=== PATIENT | female | born 1950 | race Caucasian/White ===

== ENCOUNTER → 2017-04-24 | Day surgery (SDC) | payer MEDICARE, BC ==
[~2017-04-24] MED LIST: ASPI1TAB57 PO; ASPI81TA82 PO; ATEN-100 PO; BUPIVACAINE HCL PF 0.5% 30 ML VIAL ONE; DIOV160T60 PO; GLIP10TA6 PO; GLIP5 PO; LORTA5 PO; METF-324 PO; METF1000 PO; METO25TA3 PO; OMEP20TA PO; OMEP20TA93 PO; PROPOFOL 200 MG/20 ML AMP IV ONE; TRIAMCINOLONE ACETONIDE 40 MG/ML VIAL I-ARTICULR ONE; TYLE500T PO; VALS1TAB65 PO; methylPREDNISolone ACETATE 40 MG/ML VIAL I-ARTICULR ONE
--- NOTE | 2017-04-25 21:41 | M6 ---
cc: Calvin YU DATE 04/24/2017 DATE OF 1950 PROCEDURE Fluoroscopically guided injection bilateral sacroiliac joints. History and physical was completed and signed. Consent was signed. Procedure site was marked. Medications were listed and reconciled. Pain score was recorded. Allergies were noted. Time out was taken. Fluoroscopy time was recorded where applicable. Sedation was administered or directed by Dr. Yu. The patient was given oxygen. The patient was monitored by a registered nurse. Total procedure time was greater than 15 minutes. IV was started, blood pressure cuff, pulse oximeter and EKG were applied. The patient was placed in the prone position on a Braulio table sedated with small amounts of propofol titrated to effect. Vital signs were monitored and remained stable throughout the procedure. The sacral area was prepped with alcohol and 10% Betadine solution and draped with sterile drapes. Fluoroscopy was used shooting from medial to lateral to clearly visualize the posterior joint line of the bilateral sacroiliac joints. Separate sterile 5-inch 22-gauge spinal needles were advanced into each joint under fluoroscopic guidance. There was negative aspiration for blood or any other type of fluid. At each location, the patient was given 2 mL of 0.5% Marcaine, 20 mg of Depo-Medrol, 20 mg of Kenalog. Following the procedure, the patient was taken to the recovery room with stable vital signs neurologically intact. MD HERNAN Knight/ /9:46 AM /9:31 PM
== END | disposition home or self-care (01) ==
LOC: PHSDC 07:43
PROVIDERS: ATTEND Pain Medicine Interventional Pain Medicine
DX: M54.5 Low back pain (principal); M54.16 Radiculopathy, lumbar region
CPT/HCPCS: 99152; G0260; J1030; J3301; 27096

== ENCOUNTER 2017-11-10 16:33 | Inpatient (IN) | payer MEDICARE, BC ==
[~2017-11-10] VITALS: Ht 162.6 cm; Wt 93.6 kg
[2017-11-10] VITALS (9 sets, daily range): BP systolic 134–174; BP diastolic 58–80; PULSE 122–130; RESP 16–26; TEMP 98.3–99.1; O2SAT 90–97
[~2017-11-10 16:33] MED LIST changes: -ASPI81TA82 PO; -ATEN-100 PO; -BUPIVACAINE HCL PF 0.5% 30 ML VIAL ONE; -DIOV160T60 PO; -GLIP5 PO; -LORTA5 PO; -METF-324 PO; -OMEP20TA PO; -PROPOFOL 200 MG/20 ML AMP IV ONE; -TRIAMCINOLONE ACETONIDE 40 MG/ML VIAL I-ARTICULR ONE; -TYLE500T PO; -methylPREDNISolone ACETATE 40 MG/ML VIAL I-ARTICULR ONE
--- NOTE | 2017-11-10 17:07 | PD ---
HPI Chief Complaint: Respiratory Symptoms Time Seen by Provider: 17:05 Travel History International Travel<30 days: No Contact w/Intl Traveler<30days: No Traveled to known affect area: No History of Present Illness HPI Patient states that she started having productive cough of yellowish-green sputum since Friday has approximately 3 days ago, she presented to her primary care who was on vacation and so she went to [facility] urgent care. Patient has also had fever, and cough was affiliated with his symptoms. She denies any rash, nausea, vomiting, diarrhea, abdominal pain, flank pain. 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 PFSH Past Medical History Hx Anticoagulant Therapy: No Arthritis: Yes Asthma: Yes Cancer: No Cardiovascular Problems: Yes (HTN) Diabetes: Yes Patient Takes Glucophage: Yes Endocrine: No Gastrointestinal Disorders: Yes (LARGE INTESTINE BLOCKAGE; FISTULA LG/SM INTESTINE; ADHERE TO LEFT OVARY ) Glaucoma: No Genitourinary: No Hepatitis: No Hiatal Hernia: No Hypertension: Yes Immune Disorder: No Medical other: No Musculoskeletal: Yes (ARTHRITIS) Neurologic: No Psychiatric: No Reproductive: Yes (FIBROID TUMOR RIGHT SIDE) Respiratory: Yes (ASTHMA) Thyroid Disease: No Tetanus Vaccination: < 5 Years Influenza Vaccination: Yes ?: Not Dilation and Curettage (D&C): Yes Past Surgical History Abdominal Surgery: Yes (BENIGN TUMOR REMOVED FROM STOMACH) AICD: No Body Medical Devices: NONE Cardiac Surgery: No Section: Yes Ear Surgery: No Endocrine Surgery: No Eye Surgery: No Genitourinary Surgery: No Gynecologic Surgery: Yes () Joint Replacement: No Oral Surgery: No Pacemaker: No Thoracic Surgery: No Social History Alcohol Use: Yes (RARELY) Tobacco Use: No Substance Use: No Allergies-Medications (Allergen,Severity, Reaction): Coded Allergies: No Known Allergies (Verified Allergy, Unknown, 11/10/17) Reported Meds & Prescriptions Reported Meds & Active Scripts Active Reported Metoprolol Tartrate 25 Mg Tab 25 Mg PO DAILY Valsartan 160 Mg Tab 160 Mg PO DAILY Omeprazole 20 Mg Tab 20 Mg PO DAILY Aspirin 81 (Aspirin) 81 Mg Tabdr 81 Mg PO DAILY Metformin (Metformin HCl) 1,000 Mg Tab 1,000 Mg PO BIDPC Glipizide 10 Mg Tab 10 Mg PO BIDAC Take 30 minutes before a meal Review of Systems General / Constitutional: No: Fever Eyes: No: Visual changes HENT: No: Headaches Cardiovascular: Positive: Tachycardia Respiratory: Positive: Cough, Shortness of Breath Gastrointestinal: No: Abdominal Pain Genitourinary: No: Dysuria Musculoskeletal: No: Pain Skin: No Rash Neurologic: No: Weakness Psychiatric: No: Depression Endocrine: No: Polydipsia Hematologic/Lymphatic: No: Easy Bruising Physical Exam Narrative GENERAL: SKIN: Warm and dry. HEAD: Atraumatic. Normocephalic. EYES: Pupils equal and round. No scleral icterus. No injection or drainage. ENT: No nasal bleeding or discharge. Mucous membranes pink and moist. NECK: Trachea midline. No JVD. CARDIOVASCULAR: Tachycardic rate, regular rhythm RESPIRATORY: No accessory muscle use. Right lower lobe crackles noted, minimal scattered wheezing throughout bilateral lungs, good tidal volume noted GASTROINTESTINAL: Abdomen soft, non-tender, nondistended. MUSCULOSKELETAL: Extremities without clubbing, cyanosis, or edema. No obvious deformities. NEUROLOGICAL: Awake and alert. No obvious cranial nerve deficits. Motor grossly within normal limits. Five out of 5 muscle strength in the arms and legs. Normal speech. PSYCHIATRIC: Appropriate mood and affect; insight and judgment normal. Data Data Last Documented VS Vital Signs Date Time Temp Pulse Resp B/P (MAP) Pulse Ox O2 Delivery O2 Flow Rate FiO2 11/10/17 16:54 95 Nasal Cannula 2.00 11/10/17 16:36 99.0 129 18 145/70 (95) Orders Orders Electrocardiogram (11/10/17 17:07) B-Type Natriuretic Peptide (11/10/17 17:07) Ckmb (Isoenzyme) Profile (11/10/17 17:07) Complete Blood Count With Diff (11/10/17 17:07) Comprehensive Metabolic Panel (11/10/17 17:07) Prothrombin Time / Inr (Pt) (11/10/17 17:07) Act Partial Throm Time (Ptt) (11/10/17 17:07) Troponin I (11/10/17 17:07) Lipase (11/10/17 17:07) Chest, Single Ap (11/10/17 17:07) Ecg Monitoring (11/10/17 17:07) Iv Access Insert/Monitor (11/10/17 17:07) Oximetry (11/10/17 17:07) Oxygen Administration (11/10/17 17:07) Sodium Chloride 0.9% Flush (Ns Flush) (11/10/17 17:15) Arterial Blood Gas (Abg) (11/10/17 17:13) Influenzae A/B Antigen (11/10/17 17:13) Blood Culture (11/10/17 17:13) Methylprednisolone So Succ Inj (Solumedr (11/10/17 17:15) Albuterol-Ipratropium Neb (Duoneb Neb) (11/10/17 17:15) Ceftriaxone Inj (Rocephin Inj) (11/10/17 17:15) Azithromycin Inj (Zithromax Inj) (11/10/17 17:15) Sepsis Workup Initiated (11/10/17 ) Lactic Acid Sepsis Protocol (11/10/17 17:13) Sputum Culture And Gram Stain (11/10/17 17:13) Pneumococcal Urinary Antigen (11/10/17 17:13) Legionella Urinary Antigen (11/10/17 17:13) Sodium Chlor 0.9% 1000 Ml Inj (Ns 1000 M (11/10/17 17:13) Sodium Chlor 0.9% 1000 Ml Inj (Ns 1000 M (11/10/17 17:13) CKMB (11/10/17 17:20) CKMB% (11/10/17 17:20) Labs Laboratory Tests Test 11/10/17 17:20 11/10/17 17:38 11/10/17 17:45 White Blood Count 8.0 TH/MM3 Red Blood Count 4.36 MIL/MM3 Hemoglobin 13.3 GM/DL Hematocrit 39.5 % Mean Corpuscular Volume 90.7 FL Mean Corpuscular Hemoglobin 30.5 PG Mean Corpuscular Hemoglobin Concent 33.6 % Red Cell Distribution Width 12.8 % Platelet Count 206 TH/MM3 Mean Platelet Volume 8.4 FL Neutrophils (%) (Auto) 77.0 % Lymphocytes (%) (Auto) 11.0 % Monocytes (%) (Auto) 7.7 % Eosinophils (%) (Auto) 0.9 % Basophils (%) (Auto) 3.4 % Neutrophils # (Auto) 6.1 TH/MM3 Lymphocytes # (Auto) 0.9 TH/MM3 Monocytes # (Auto) 0.6 TH/MM3 Eosinophils # (Auto) 0.1 TH/MM3 Basophils # (Auto) 0.3 TH/MM3 CBC Comment DIFF FINAL Differential Comment Prothrombin Time 11.3 SEC Prothromb Time International Ratio 1.1 RATIO Activated Partial Thromboplast Time 26.1 SEC Blood Urea Nitrogen 11 MG/DL Creatinine 1.30 MG/DL Random Glucose 197 MG/DL Total Protein 8.1 GM/DL Albumin 3.0 GM/DL Calcium Level 8.4 MG/DL Alkaline Phosphatase 56 U/L Aspartate Amino Transf (AST/SGOT) 26 U/L Alanine Aminotransferase (ALT/SGPT) 26 U/L Total Bilirubin 0.4 MG/DL Sodium Level 135 MEQ/L Potassium Level 3.0 MEQ/L Chloride Level 95 MEQ/L Carbon Dioxide Level 31.3 MEQ/L Anion Gap 9 MEQ/L Estimat Glomerular Filtration Rate 41 ML/MIN Total Creatine Kinase 106 U/L Troponin I LESS THAN 0.02 NG/ML B-Type Natriuretic Peptide 14 PG/ML Lipase 227 U/L Blood Gas Puncture Site RT RADIAL Blood Gas Patient Temperature 98.6 Blood Gas HCO3 31 mmol/L Blood Gas Base Excess 7.4 mmol/L Blood Gas Oxygen Saturation 88 % Arterial Blood pH 7.49 Arterial Blood Partial Pressure CO2 41 mmHG Arterial Blood Partial Pressure O2 57 mmHG Arterial Blood Oxygen Content 17.7 Vol % Arterial Blood Carboxyhemoglobin 1.3 % Arterial Blood Methemoglobin 1.1 % Blood Gas Hemoglobin 14.3 G/DL Oxygen Delivery Device ROOM AIR Blood Gas Inspired Oxygen 21 % [facility] Medical Decision Making Medical Screen Exam Complete: Yes Emergency Medical Condition: Yes Medical Record Reviewed: Yes Interpretation(s) EKG shows sinus tachycardia, 124 bpm, normal intervals, no evidence of any ST elevation OH, however there are some minimal lateral ST depressions noted. Patient is not oxygen dependent Pulse ox with excellent pleth wave shows a room air oximetry of 90%, which is consistent with hypoxemia Differential Diagnosis Sepsis due to pulmonary causes versus UTI versus pleural effusion Narrative Course Reviewed patient's outpatient EKG which showed a right lower lobe infiltrate noted on the AP and lateral, additionally reviewed her outpatient EKG which showed a sinus tachycardia at a rate of 124 which is very similar to the present EKG that she had performed here at the emergency department. Sepsis Criteria SIRS Criteria (2 or more): Heart rate over 90 Sepsis Criteria (SIRS+source): Infect source susp/known Admitting Information Admitting Physician Requests: Observation Constantino Mahmood MD Nov 10, 2017 17:07
[2017-11-10] MEDS ORDERED: SODIUM CHLOR 0.9% 1000 ML INJ 1,000 ML IV ONE (17:13)
[2017-11-10] MEDS ORDERED: SODIUM CHLOR 0.9% 1000 ML INJ 800 ML IV ONE (17:13)
[2017-11-10] MEDS ORDERED: methylPREDNISolone SOD SUCC 125 MG/2 ML VIAL IV PUSH ONE (17:15)
[2017-11-10] MEDS ORDERED: SODIUM CHLORIDE 0.9% FLUSH 10 ML FLUSH IVF PRN (17:15)
[2017-11-10] MEDS ORDERED: cefTRIAXone INJ 1,000 MG in SODIUM CHLORIDE 0.9% INJ 100 ML IV ONE (17:15)
[2017-11-10] MEDS ORDERED: AZITHROMYCIN INJ 500 MG in SODIUM CHLOR 0.9% 250 ML INJ 250 ML IV ONE (17:15)
[2017-11-10 17:30] LABS: AUTOMATED NEUTROPHIL # 6.1 TH/MM3 (1.8-7.7); BASOPHIL # 0.3 TH/MM3 (0-0.2); BASOPHIL % 3.4 % (0.0-2.0); EOSINOPHIL # 0.1 TH/MM3 (0-0.4); EOSINOPHIL % 0.9 % (0.0-4.0); HEMATOCRIT 39.5 % (35.0-46.0); HEMOGLOBIN 13.3 GM/DL (11.6-15.3); LYMPHOCYTE # 0.9 TH/MM3 (1.0-4.8); MEAN CELL VOLUME 90.7 FL (80.0-100.0); MEAN CORPUSCULAR HEMOGLOBIN 30.5 PG (27.0-34.0); MEAN CORPUSCULAR HGB CONC 33.6 % (32.0-36.0); MEAN PLATELET VOLUME 8.4 FL (7.0-11.0); MONO % 7.7 % (0.0-8.0); MONOCYTE # 0.6 TH/MM3 (0-0.9); PLATELET COUNT 206 TH/MM3 (150-450); RED BLOOD COUNT 4.36 MIL/MM3 (4.00-5.30); RED CELL DISTRIBUTION WIDTH 12.8 % (11.6-17.2)
[2017-11-10] MEDS: RESP: ALBUTEROL 2.5 MG/IPRATROPIUM 0.5 MG NEB (SCH) INH ×2 (17:31→17:32)
[2017-11-10 17:39] LABS: CHLORIDE 95 MEQ/L (98-107); SODIUM (NA) 135 MEQ/L (136-145)
[2017-11-10 17:42] LABS: BICARBONATE 31.3 MEQ/L (21.0-32.0); CALCIUM 8.4 MG/DL (8.5-10.1); INTERNATIONAL NORMALIZED RATIO 1.1 RATIO; PROTHROMBIN TIME - PATIENT 11.3 SEC (9.8-11.6)
[2017-11-10 17:43] LABS: BLOOD UREA NITROGEN 11 MG/DL (7-18); GLUCOSE,RANDOM 197 MG/DL (74-106)
[2017-11-10 17:45] LABS: ALT (GPT) 26 U/L (10-53); AST (GOT) 26 U/L (15-37)
--- NOTE | 2017-11-10 17:45 | RADRPT ---
EXAM DATE: 11/10/2017 5:35 PM EDT AGE/SEX: 67 years / Female INDICATIONS: Shortness of breath. CLINICAL DATA: This is the patient's initial encounter. Patient reports that signs and symptoms have been present for 1 day and indicates a pain score of 0/10. MEDICAL/SURGICAL HISTORY: Asthma. Hypertension. None. COMPARISON: No prior [facility] exams available for comparison. FINDINGS: Streaky perihilar and basilar interstitial opacities of undetermined chronicity. No evidence of alveo lar consolidation or significant effusion. Heart size and mediastinal contours are grossly satisfacto ry. CONCLUSION: Streaky parenchymal opacities of undetermined chronicity. Electronically signed by: Bonilla Bryson MD 11/10/2017 5:43 PM EDT
[2017-11-10 17:46] LABS: GLOMERULAR FILTRATION RATE 41 ML/MIN (>89)
[2017-11-10 17:47] LABS: TOTAL BILIRUBIN ADULT 0.4 MG/DL (0.2-1.0); TOTAL PROTEIN 8.1 GM/DL (6.4-8.2)
[2017-11-10 17:48] LABS: ALKALINE PHOSPHATASE 56 U/L (45-117)
[2017-11-10 17:50] LABS: TROPONIN I LESS THAN 0.02 NG/ML (0.02-0.05)
[2017-11-10 18:03] LABS: LACTIC ACID SEPSIS PROTOCOL 2.6 mmol/L (0.4-2.0)
[2017-11-10] MEDS ORDERED: OXYB5TAB8 PO (18:27)
[2017-11-10] MEDS ORDERED: NALOXONE HCL 0.4 MG/ML AMP IV PUSH PRN (19:45)
[2017-11-10] MEDS ORDERED: GLUCAGON 1 MG/ML VIAL OTHER PRN (19:45)
[2017-11-10] MEDS ORDERED: DEXTROSE 50% IN WATER 50 ML VIAL(D50) IV PUSH PRN (19:45)
[2017-11-10] MEDS ORDERED: BISACODYL 10 MG SUPP RECTAL PRN (20:00)
[2017-11-10] MEDS ORDERED: LACTULOSE SYRUP 20 GM/30 ML CUP PO PRN (20:00)
[2017-11-10] MEDS ORDERED: RESP: ALBUTEROL 2.5 MG/IPRATROPIUM 0.5 MG NEB (PRN) NEB (20:00)
[2017-11-10] MEDS: SODIUM CHLOR 0.9% 1000 ML INJ 1,000 ML IV SCH (20:03)
[2017-11-10] MEDS ORDERED: SENNOSIDES 8.6 MG TAB PO PRN (21:00)
[2017-11-10] MEDS ORDERED: MAGNESIUM HYDROXIDE SUSP 30 ML CUP PO PRN (21:00)
[2017-11-10] MEDS: HEPARIN SODIUM - SQ 10,000 UNITS/ML VIAL SQ SCH (21:06)
[2017-11-10] MEDS: guaiFENesin E.R. 600 MG TAB PO SCH (21:06)
[2017-11-10] MEDS: OXYBUTYNIN CHLORIDE 5 MG TAB PO SCH (21:06)
[2017-11-10] MEDS: SODIUM CHLORIDE 0.9% FLUSH 10 ML FLUSH IV FLUSH SCH (21:08)
[2017-11-10] MEDS ORDERED: FAMOTIDINE 20 MG TAB PO ONE (21:15)
[2017-11-10] MEDS: INSULIN ASPART SUPPLEMENTAL SCALE SQ SCH (21:15)
[2017-11-10] MEDS: ACETAMINOPHEN 325 MG TAB PO PRN (21:22)
[2017-11-10] MEDS: RESP: ALBUTEROL 2.5 MG/IPRATROPIUM 0.5 MG NEB (SCH) NEB (21:42)
[2017-11-10] MEDS: methylPREDNISolone SOD SUCC 40 MG/1 ML VIAL IV PUSH SCH (23:43)
[2017-11-11] VITALS (11 sets, daily range): BP systolic 118–160; BP diastolic 54–110; PULSE 98–126; RESP 9–40; TEMP 97.3–98.1; O2SAT 91–96
[2017-11-11] MEDS: SODIUM CHLOR 0.9% 1000 ML INJ 1,000 ML IV SCH ×2 (04:37→17:35)
[2017-11-11] MEDS: methylPREDNISolone SOD SUCC 40 MG/1 ML VIAL IV PUSH SCH ×3 (04:37→17:37)
[2017-11-11] MEDS: HEPARIN SODIUM - SQ 10,000 UNITS/ML VIAL SQ SCH ×3 (04:38→21:58)
[2017-11-11] MEDS: RESP: ALBUTEROL 2.5 MG/IPRATROPIUM 0.5 MG NEB (SCH) NEB ×4 (04:46→19:54)
[2017-11-11 04:57] LABS: BASOPHIL % 0.1 % (0.0-2.0); EOSINOPHIL % 0.1 % (0.0-4.0); HEMATOCRIT 37.5 % (35.0-46.0); HEMOGLOBIN 12.6 GM/DL (11.6-15.3); LYMPH % 8.2 % (9.0-44.0); LYMPHOCYTE # 0.6 TH/MM3 (1.0-4.8); MEAN CELL VOLUME 91.6 FL (80.0-100.0); MEAN CORPUSCULAR HEMOGLOBIN 30.8 PG (27.0-34.0); MEAN CORPUSCULAR HGB CONC 33.6 % (32.0-36.0); MONO % 1.7 % (0.0-8.0); MONOCYTE # 0.1 TH/MM3 (0-0.9); NEUT % 89.9 % (16.0-70.0); PLATELET COUNT 192 TH/MM3 (150-450); RED BLOOD COUNT 4.09 MIL/MM3 (4.00-5.30); RED CELL DISTRIBUTION WIDTH 12.6 % (11.6-17.2); WHITE BLOOD COUNT 6.7 TH/MM3 (4.0-11.0)
[2017-11-11 05:23] LABS: BICARBONATE 28.9 MEQ/L (21.0-32.0); CALCIUM 7.7 MG/DL (8.5-10.1)
[2017-11-11 08:34] LABS: LACTIC ACID SEPSIS PROTOCOL 2.1 mmol/L (0.4-2.0)
[2017-11-11] MEDS: INSULIN ASPART SUPPLEMENTAL SCALE SQ SCH ×4 (08:41→21:58)
[2017-11-11] MEDS: SODIUM CHLORIDE 0.9% FLUSH 10 ML FLUSH IV FLUSH SCH ×2 (08:41→20:13)
[2017-11-11] MEDS: FAMOTIDINE 20 MG TAB PO SCH ×2 (08:43→20:12)
[2017-11-11] MEDS: guaiFENesin E.R. 600 MG TAB PO SCH ×2 (08:43→20:12)
[2017-11-11] MEDS: PANTOPRAZOLE SOD 20 MG DELAYED RELEASE TAB PO SCH (08:43)
[2017-11-11] MEDS: ASPIRIN EC 81 MG TABEC PO SCH (08:43)
[2017-11-11] MEDS: OXYBUTYNIN CHLORIDE 5 MG TAB PO SCH ×2 (08:43→20:12)
[2017-11-11] MEDS: VALSARTAN 80 MG TAB PO SCH (08:59)
[2017-11-11] MEDS ORDERED: METOPROLOL TARTRATE 25 MG TAB PO SCH (09:00)
--- NOTE | 2017-11-11 13:35 | HHI.HP ---
HPI Service [facility] Hospitalists Primary Care Physician Keiry Floyd MD Admission Diagnosis RLL PNA, HYPOXEMIA, SIRS Diagnoses: (1) Acute respiratory failure with hypoxia Diagnosis: Principal Chief Complaint: Patient sent here by urgent care because of pneumonia Travel History International Travel<30 Days: No Contact w/Intl Traveler <30 Da: No Traveled to Known Affected Are: No Sepsis Criteria SIRS Criteria (2 or more): Heart rate over 90 Sepsis Criteria (SIRS+source): Infect source susp/known Severe Sepsis (+one): Lactate >2 History of Present Illness This is a 67-year-old female with known history of hypertension, diabetes, recent right knee replacement who presented to the hospital at the request of urgent care because of possible pneumonia. Patient states that she was in her normal state of health until Friday when she developed a cough which she states was nonproductive and very irritating. It started today get progressively worse and she started having pain in her rib area from coughing so much. She went to her primary medical doctor's office yesterday, however they were on vacation as she went to [facility] and had an x-ray done and was told by the physician there that she may have pneumonia that she should go to the ER for further evaluation. Patient did come to [facility] emergency department and had chest x-ray performed which did show streaky parenchymal opacities of undetermined chronicity. Patient has significant findings to include tachycardia, hypoxia requiring 4 L nasal cannula maintain O2 sats greater than 92%. Blood gas that did indicate hypoxia with O2 saturation 88% and PO2 of 57. Because of those reasons is recommended by the ER physician that the patient be admitted for further evaluation and management. Patient denies any recent sick exposures, denies any chest pain, hemoptysis, abdominal pain, nausea, vomiting, diaphoresis, lower extremity edema. Review of Systems Respiratory: COMPLAINS OF: Cough Except as stated in HPI: all other systems reviewed are Neg Past Family Social History Past Medical History Hypertension Diabetes Past Surgical History Bilateral carpal tunnel surgery Recent right knee replacement Abdominal surgery for benign tumor removal Reported Medications Reported Meds & Active Scripts Active Reported Ditropan (Oxybutynin Chloride) 5 Mg Tab 5 Mg PO Q12HR Metoprolol Tartrate 25 Mg Tab 25 Mg PO DAILY Valsartan 160 Mg Tab 160 Mg PO DAILY Omeprazole 20 Mg Tab 20 Mg PO DAILY Aspirin 81 (Aspirin) 81 Mg Tabdr 81 Mg PO DAILY Metformin (Metformin HCl) 1,000 Mg Tab 1,000 Mg PO BIDPC Glipizide 10 Mg Tab 10 Mg PO BIDAC Take 30 minutes before a meal Allergies: Coded Allergies: No Known Allergies (Verified Allergy, Unknown, 11/10/17) Family History Patient denies any tobacco, alcohol or illicit drugs Social History Family history was reviewed and patient indicated that father in his 70s from brain stem stroke. Physical Exam Vital Signs Vital Signs Date Time Temp Pulse Resp B/P (MAP) Pulse Ox O2 Delivery O2 Flow Rate FiO2 11/11/17 10:47 96 Nasal Cannula 4.00 11/11/17 08:00 108 11/11/17 08:00 98.1 108 31 136/70 (92) 94 11/11/17 04:00 102 11/11/17 04:00 97.7 102 14 148/60 (89) 96 11/11/17 00:00 126 11/11/17 00:00 97.3 126 9 118/54 (75) 94 11/10/17 23:00 130 16 161/58 (92) 96 11/10/17 22:00 130 19 147/65 (92) 97 11/10/17 22:00 130 11/10/17 21:42 96 Nasal Cannula 4.00 11/10/17 21:00 128 11/10/17 21:00 98.3 128 26 152/72 (98) 90 11/10/17 20:32 11/10/17 20:07 99.1 130 18 174/80 (111) 92 Nasal Cannula 2.00 11/10/17 19:01 99.0 129 22 172/73 (106) 94 Nasal Cannula 2.00 11/10/17 18:03 Nasal Cannula 2.00 11/10/17 18:03 95 Nasal Cannula 2.00 11/10/17 18:02 122 24 134/72 (92) 96 Nasal Cannula 2.00 11/10/17 17:50 96 Nasal Cannula 2.00 11/10/17 16:54 95 Nasal Cannula 2.00 11/10/17 16:36 99.0 129 18 145/70 (95) 92 Physical Exam GENERAL: Well-developed, well-nourished, in no acute distress. alert and orientated HEENT: Head is normocephalic without any lesions or masses noted. Facial features are symmetric. Eyes: Pupils equal round reactive to light. Extraocular muscles are intact. Conjunctivae were clear. Oropharyngeal: Pharynx without any erythema edema. Tongue is midline without deviation. Buccal mucosa is moist without any masses or lesions NECK: Supple without any masses. Trachea midline no deviation. No JVD, no bruits are appreciated CARDIAC: Regular rhythm, regular rate. S1/S2 are heard. No murmurs gallops or rubs. LUNGS: Clear to auscultation bilaterally. No wheeze, rhonchi or rales. No use of accessory muscles on inspiration or expiration. ABDOMEN: Soft, nontender. Nondistended. Bowel sounds heard in all 4 quadrants. No organomegaly or masses. Negative rebound, negative guarding EXTREMITIES: No edema, pulses are equal bilaterally. No cyanosis or clubbing NEUROLOGY: Mood and affect appear appropriate. Cranial nerves II through XII grossly intact. Muscle strength 5/5 in upper and lower extremities bilaterally. Deep tendon reflexes are 2+ in upper and lower extremities bilaterally. Laboratory Laboratory Tests Test 11/10/17 17:20 11/10/17 17:38 11/10/17 17:45 11/10/17 20:10 White Blood Count 8.0 Red Blood Count 4.36 Hemoglobin 13.3 Hematocrit 39.5 Mean Corpuscular Volume 90.7 Mean Corpuscular Hemoglobin 30.5 Mean Corpuscular Hemoglobin Concent 33.6 Red Cell Distribution Width 12.8 Platelet Count 206 Mean Platelet Volume 8.4 Neutrophils (%) (Auto) 77.0 Lymphocytes (%) (Auto) 11.0 Monocytes (%) (Auto) 7.7 Eosinophils (%) (Auto) 0.9 Basophils (%) (Auto) 3.4 Neutrophils # (Auto) 6.1 Lymphocytes # (Auto) 0.9 Monocytes # (Auto) 0.6 Eosinophils # (Auto) 0.1 Basophils # (Auto) 0.3 CBC Comment DIFF FINAL Differential Comment Prothrombin Time 11.3 Prothromb Time International Ratio 1.1 Activated Partial Thromboplast Time 26.1 Blood Urea Nitrogen 11 Creatinine 1.30 Random Glucose 197 Total Protein 8.1 Albumin 3.0 Calcium Level 8.4 Alkaline Phosphatase 56 Aspartate Amino Transf (AST/SGOT) 26 Alanine Aminotransferase (ALT/SGPT) 26 Total Bilirubin 0.4 Sodium Level 135 Potassium Level 3.0 Chloride Level 95 Carbon Dioxide Level 31.3 Anion Gap 9 Estimat Glomerular Filtration Rate 41 Total Creatine Kinase 106 Creatine Kinase MB LESS THAN 0.5 Troponin I LESS THAN 0.02 B-Type Natriuretic Peptide 14 Lipase 227 Lactic Acid Level 2.6 3.0 Blood Gas Puncture Site RT RADIAL Blood Gas Patient Temperature 98.6 Blood Gas HCO3 31 Blood Gas Base Excess 7.4 Blood Gas Oxygen Saturation 88 Arterial Blood pH 7.49 Arterial Blood Partial Pressure CO2 41 Arterial Blood Partial Pressure O2 57 Arterial Blood Oxygen Content 17.7 Arterial Blood Carboxyhemoglobin 1.3 Arterial Blood Methemoglobin 1.1 Blood Gas Hemoglobin 14.3 Oxygen Delivery Device ROOM AIR Blood Gas Inspired Oxygen 21 Test 11/11/17 04:20 11/11/17 08:00 11/11/17 11:20 White Blood Count 6.7 Red Blood Count 4.09 Hemoglobin 12.6 Hematocrit 37.5 Mean Corpuscular Volume 91.6 Mean Corpuscular Hemoglobin 30.8 Mean Corpuscular Hemoglobin Concent 33.6 Red Cell Distribution Width 12.6 Platelet Count 192 Mean Platelet Volume 9.0 Neutrophils (%) (Auto) 89.9 Lymphocytes (%) (Auto) 8.2 Monocytes (%) (Auto) 1.7 Eosinophils (%) (Auto) 0.1 Basophils (%) (Auto) 0.1 Neutrophils # (Auto) 6.0 Lymphocytes # (Auto) 0.6 Monocytes # (Auto) 0.1 Eosinophils # (Auto) 0.0 Basophils # (Auto) 0.0 CBC Comment DIFF FINAL Differential Comment Blood Urea Nitrogen 10 Creatinine 1.00 Random Glucose 287 Calcium Level 7.7 Sodium Level 140 Potassium Level 3.5 Chloride Level 103 Carbon Dioxide Level 28.9 Anion Gap 8 Estimat Glomerular Filtration Rate 55 Lactic Acid Level 2.1 3.9 Date/Time Source Procedure Growth Status 11/10/17 17:40 Blood Peripheral Aerobic Blood Culture - Preliminary NO GROWTH IN 1 DAY Resulted 11/10/17 17:40 Blood Peripheral Anaerobic Blood Culture - Preliminary NO GROWTH IN 1 DAY Resulted 11/10/17 18:20 Nasal Washing Influenza Types A,B Antigen (JEREMIAS) - Final NEGATIVE FOR FLU A AND B ANTIGEN.... Complete 11/10/17 18:49 Urine Random Urine Legionella Antigen - Final PRESUMPTIVE NEGATIVE FOR LEGIONELLA P... Complete 11/10/17 18:49 Urine Random Urine Streptococcus pneumoniae Antigen (M - Final PRESUMPTIVE NEGATIVE FOR STREPTOCOCCU... Complete Result Diagram: 11/11/17 0420 11/11/17 0420 Imaging Last Impressions Chest X-Ray 11/10/17 1707 Signed Impressions: CONCLUSION: Streaky parenchymal opacities of undetermined chronicity. Caprini VTE Risk Assessment Caprini VTE Risk Assessment: Mod/High Risk (score >= 2) Caprini Risk Assessment Model Point Value = 1 Point Value = 2 Point Value = 3 Point Value = 5 Age 41-60 Minor surgery BMI > 25 kg/m2 Swollen legs Varicose veins or History of unexplained or recurrent spontaneous Oral contraceptives or hormone replacement Sepsis (< 1 month) Serious lung disease, including pneumonia (< 1 month) Abnormal pulmonary function Acute myocardial infarction Congestive heart failure (< 1 month) History of inflammatory bowel disease Medical patient at bed rest Age 61-74 Arthroscopic surgery Major open surgery (> 45 min) Laparoscopic surgery (> 45 min) Malignancy Confined to bed (> 72 hours) Immobilizing plaster cast Central venous access Age >= 75 History of VTE Family history of VTE Factor V Leiden Prothrombin [id number] Lupus anticoagulant Anticardiolipin antibodies Elevated serum homocysteine Heparin-induced thrombocytopenia Other congenital or acquired thrombophilia Stroke (< 1 month) Elective arthroplasty Hip, pelvis, or leg fracture Acute spinal cord injury (< 1 month) Prophylaxis Regimen Total Risk Factor Score Risk Level Prophylaxis Regimen 0-1 Low Early ambulation 2 Moderate Order ONE of the following: *Sequential Compression Device (SCD) *Heparin 5000 units SQ BID 3-4 Higher Order ONE of the following medications: *Heparin 5000 units SQ TID *Enoxaparin/Lovenox 40 mg SQ daily (WT < 150 kg, CrCl > 30 mL/min) *Enoxaparin/Lovenox 30 mg SQ daily (WT < 150 kg, CrCl > 10-29 mL/min) *Enoxaparin/Lovenox 30 mg SQ BID (WT < 150 kg, CrCl > 30 mL/min) AND/OR *Sequential Compression Device (SCD) 5 or more Highest Order ONE of the following medications: *Heparin 5000 units SQ TID (Preferred with Epidurals) *Enoxaparin/Lovenox 40 mg SQ daily (WT < 150 kg, CrCl > 30 mL/min) *Enoxaparin/Lovenox 30 mg SQ daily (WT < 150 kg, CrCl > 10-29 mL/min) *Enoxaparin/Lovenox 30 mg SQ BID (WT < 150 kg, CrCl > 30 mL/min) AND *Sequential Compression Device (SCD) Assessment and Plan Assessment and Plan Acute hypoxic respiratory failure -Workup thus far only indicates some parenchymal changes by chest x-ray, mildly elevated lactic acid level, hypoxia, tachycardia -Because the patient having recent knee replacement, tachycardia, hypoxia will pursue pulmonary angiogram to rule out any pulmonary emboli -Continue O2 sat mentation maintain O2 sats greater than 92% -Continue Zithromax and Rocephin at this time -Continue duo nebs every 6 hours while awake and every 2 hours as needed -Continue guaifenesin -Awaiting sputum culture -Legionella, streptococcal testing, influenza testing was negative -Continue monitor lactic acid level Hypertension -Home medications have been continued Diabetes -Accu-Cheks with sliding scale insulin DVT prevention -Subcutaneous heparin Physician Certification 2 Midnight Certification Type: Admission for Inpatient Services Order for Inpatient Services The services are ordered in accordance with Medicare regulations or non- Medicare payer requirements, as applicable. In the case of services not specified as inpatient-only, they are appropriately provided as inpatient services in accordance with the 2-midnight benchmark. Estimated LOS (days): 2 days is the estimated time the patient will need to remain in the hospital, assuming treatment plan goals are met and no additional complications. Post-Hospital Plan: Home Cory Johnson Nov 11, 2017 13:35
[2017-11-11] MEDS ORDERED: IOHEXOL 350 MG/ML 10 ML VIAL (for RAD DIAG) IVCONTRAST ONE (15:48)
--- NOTE | 2017-11-11 15:56 | RADRPT ---
EXAM DATE: 11/11/2017 3:47 PM EDT AGE/SEX: 67 years / Female INDICATIONS: Cough and short of breath. Recent knee surgery. CLINICAL DATA: This is the patient's initial encounter. Patient reports that signs and symptoms have been present for 1 week and indicates a pain score of 0/10. MEDICAL/SURGICAL HISTORY: Hypertension. section. Knee surgery. RADIATION DOSE: 17.54 CTDI (mGy) COMPARISON: No prior [facility] exams available for comparison. TECHNIQUE: Volumetric scanning was performed using a multi-row detector CT scanner during bolus infu mayda of 65 ml Omnipaque 350 (iohexol) nonionic water-soluble contrast as a single exam dose. The asiya a was post processed with a variety of visualization algorithms including full volume maximum intensi ty projection and sliding thin slab reformation. Using automated exposure control and adjustment of the mA and/or kV according to patient size, radiation dose was kept as low as reasonably achievable t o obtain optimal diagnostic quality images. FINDINGS: Pulmonary Arteries: No filling defects are seen in the pulmonary arteries out to the subsegmental ve ssels. The left and right pulmonary arteries are normal in diameter. Lung: No infiltrates seen. Effusion: None. Mediastinum: No evidence of mediastinal or hilar adenopathy. Other: The axilla is unremarkable. Large nodule in the right thyroid lobe CONCLUSION: 1. This study is negative for pulmonary embolism. Electronically signed by: Linwood Snyder MD 11/11/2017 3:55 PM EDT
--- NOTE | 2017-11-11 16:45 | EKG ---
Date Performed: 11/10/2017 Time Performed: 17:16:19 PTAGE: 67 years EKG: SINUS TACHYCARDIA ABNORMAL RHYTHM ECG PREVIOUS TRACING : 08/09/2013 14.40 Since the prior tracing, the minimal lateral J-point depres mayda and sinus tachycardia are new. Clinical correlation advised. DOCTOR: Whitney Heller Interpretating Date/Time 11/11/2017 16:43:37
[2017-11-11] MEDS ORDERED: METOPROLOL TARTRATE 25 MG TAB PO ONE (17:30)
[2017-11-11] MEDS ORDERED: AZITHROMYCIN INJ 500 MG in SODIUM CHLOR 0.9% 250 ML INJ 250 ML IV SCH (18:00)
[2017-11-11 18:23] LABS: BILIRUBIN, URINE NEG (NEG); BLOOD, URINE NEG (NEG); GLUCOSE,URINE 500 mg/dL (NEG); KETONE, URINE NEG (NEG); NITRITE,URINE NEG (NEG); URINE COLOR YELLOW (YELLW/STRAW); URINE LEUKOCYTE ESTERASE NEG (NEG)
[2017-11-11 18:28] LABS: WBC, URINE 0-2 /hpf (0-5)
[2017-11-11 18:29] LABS: RBC, URINE 0-3 /hpf (0-3); SQUAMOUS EPITHELIAL CELL URINE 0-5 /hpf (0-5)
[2017-11-11 18:55] LABS: LACTIC ACID SEPSIS PROTOCOL 3.1 mmol/L (0.4-2.0)
[2017-11-11] MEDS: cefTRIAXone INJ 1,000 MG in SODIUM CHLORIDE 0.9% INJ 100 ML IV SCH (20:13)
[2017-11-12] VITALS (12 sets, daily range): BP systolic 107–152; BP diastolic 60–76; PULSE 90–111; RESP 13–20; TEMP 96.5–99; O2SAT 90–97
[2017-11-12] MEDS: methylPREDNISolone SOD SUCC 40 MG/1 ML VIAL IV PUSH SCH ×4 (00:16→18:09)
[2017-11-12] MEDS: ACETAMINOPHEN 325 MG TAB PO PRN ×2 (03:46→18:08)
[2017-11-12] MEDS: SODIUM CHLOR 0.9% 1000 ML INJ 1,000 ML IV SCH (04:49)
[2017-11-12] MEDS: SODIUM CHLORIDE 0.9% FLUSH 10 ML FLUSH IV FLUSH PRN ×2 (04:49→05:41)
[2017-11-12] MEDS: HEPARIN SODIUM - SQ 10,000 UNITS/ML VIAL SQ SCH ×3 (05:41→21:51)
[2017-11-12] MEDS: RESP: ALBUTEROL 2.5 MG/IPRATROPIUM 0.5 MG NEB (SCH) NEB ×3 (06:17→20:04)
[2017-11-12 06:43] LABS: AUTOMATED NEUTROPHIL # 15.9 TH/MM3 (1.8-7.7); BASOPHIL % 0.1 % (0.0-2.0); EOSINOPHIL % 0.1 % (0.0-4.0); HEMATOCRIT 33.4 % (35.0-46.0); HEMOGLOBIN 11.6 GM/DL (11.6-15.3); LYMPH % 4.5 % (9.0-44.0); LYMPHOCYTE # 0.8 TH/MM3 (1.0-4.8); MEAN CELL VOLUME 94.1 FL (80.0-100.0); MEAN CORPUSCULAR HEMOGLOBIN 32.6 PG (27.0-34.0); MEAN CORPUSCULAR HGB CONC 34.7 % (32.0-36.0); MEAN PLATELET VOLUME 9.4 FL (7.0-11.0); MONO % 2.1 % (0.0-8.0); MONOCYTE # 0.4 TH/MM3 (0-0.9); NEUT % 93.2 % (16.0-70.0); PLATELET COUNT 194 TH/MM3 (150-450); RED BLOOD COUNT 3.55 MIL/MM3 (4.00-5.30); RED CELL DISTRIBUTION WIDTH 12.8 % (11.6-17.2); WHITE BLOOD COUNT 17.1 TH/MM3 (4.0-11.0)
[2017-11-12 06:56] LABS: CALCIUM 7.8 MG/DL (8.5-10.1)
[2017-11-12 06:57] LABS: BICARBONATE 30.4 MEQ/L (21.0-32.0); MAGNESIUM 1.8 MG/DL (1.5-2.5)
[2017-11-12 07:01] LABS: CREATININE 0.92 MG/DL (0.50-1.00)
[2017-11-12] MEDS: METOPROLOL TARTRATE 25 MG TAB PO SCH ×2 (08:39→21:48)
[2017-11-12] MEDS: INSULIN ASPART SUPPLEMENTAL SCALE SQ SCH ×4 (08:39→22:10)
[2017-11-12] MEDS: FAMOTIDINE 20 MG TAB PO SCH ×2 (08:40→21:48)
[2017-11-12] MEDS: PANTOPRAZOLE SOD 20 MG DELAYED RELEASE TAB PO SCH (08:40)
[2017-11-12] MEDS: ASPIRIN EC 81 MG TABEC PO SCH (08:41)
[2017-11-12] MEDS: guaiFENesin E.R. 600 MG TAB PO SCH ×2 (08:41→21:48)
[2017-11-12] MEDS: OXYBUTYNIN CHLORIDE 5 MG TAB PO SCH ×3 (08:41→21:56)
[2017-11-12] MEDS: VALSARTAN 80 MG TAB PO SCH (08:42)
[2017-11-12] MEDS: SODIUM CHLORIDE 0.9% FLUSH 10 ML FLUSH IV FLUSH SCH ×2 (08:43→21:48)
[2017-11-12] MEDS ORDERED: FUROSEMIDE 20 MG/2 ML VIAL IV PUSH ONE (08:45)
--- NOTE | 2017-11-12 10:06 | HHI.PR ---
Subjective Remarks 67-year-old female who is seen and examined today for follow-up on acute hypoxic respiratory failure. Patient states that she feels more short of breath today with wheezing. Patient has been successfully weaned off oxygen is only on 1 L of oxygen at this time. Patient still having episodes of sinus tachycardia, patient remains afebrile Objective Vitals Vital Signs Date Time Temp Pulse Resp B/P (MAP) Pulse Ox O2 Delivery O2 Flow Rate FiO2 11/12/17 07:52 96.5 111 20 140/69 (92) 93 11/12/17 06:30 95 Nasal Cannula 1.00 11/12/17 06:17 97 Nasal Cannula 2.00 11/12/17 04:00 97.6 100 18 107/64 (78) 96 11/12/17 00:03 99.0 90 13 107/60 (76) 92 11/12/17 00:00 110 11/11/17 20:00 97.9 98 34 131/66 (87) 11/11/17 20:00 113 11/11/17 19:54 94 Nasal Cannula 2.00 11/11/17 18:00 120 11/11/17 16:00 120 11/11/17 16:00 126 40 152/73 (99) 92 11/11/17 15:31 95 Nasal Cannula 2.00 11/11/17 12:08 114 11/11/17 12:00 97.8 116 40 160/110 (127) 91 11/11/17 12:00 116 11/11/17 10:47 96 Nasal Cannula 4.00 I/O 11/11/17 11/11/17 11/11/17 11/12/17 11/12/17 11/12/17 07:00 15:00 23:00 07:00 15:00 23:00 Intake Total 1150 ml 720 ml 2047 ml Output Total 900 ml 1100 ml Balance 250 ml -380 ml 2047 ml Intake Oral 720 ml IV Total 1150 ml 2047 ml Output Urine Total 900 ml 1100 ml # Bowel Movements 0 Result Diagram: 11/12/1744011/12/17440 Objective Remarks GENERAL: Well-developed, well-nourished, in no acute distress. alert and orientated HEENT: Head is normocephalic without any lesions or masses noted. Facial features are symmetric. Eyes: Extraocular muscles are intact. Conjunctivae were clear. NECK: Supple without any masses. Trachea midline no deviation. No JVD, CARDIAC: Regular rhythm, regular rate. S1/S2 are heard. No murmurs gallops or rubs. LUNGS: Clear to auscultation bilaterally. No wheeze, rhonchi or rales. No use of accessory muscles on inspiration or expiration. ABDOMEN: Soft, nontender. Nondistended. Bowel sounds heard in all 4 quadrants. No organomegaly or masses. Negative rebound, negative guarding EXTREMITIES: No edema, pulses are equal bilaterally. No cyanosis or clubbing NEUROLOGY: Mood and affect appear appropriate. Cranial nerves II through XII grossly intact. Moving all extremities, speech is clear Urinary Catheter: No Vascular Central Line Catheter: No A/P Assessment and Plan Acute hypoxic respiratory failure -Etiology is still questionable of patient's hypoxic respiratory failure. Could be due to acute bronchospasm, acute inflammatory process, possible cardiac shunting -Workup thus far only indicates some parenchymal changes by chest x-ray, mildly elevated lactic acid level, hypoxia, tachycardia -Patient was high risk for pulmonary emboli, pulmonary angiogram was performed which did not indicate any pulmonary emboli, also does not indicate any infiltrates -Continue O2 supplementation to maintain O2 sats greater than 92% -Continue Zithromax and Rocephin at this time -Continue duo nebs every 6 hours while awake and every 2 hours as needed -Continue guaifenesin -Awaiting sputum culture -Legionella, streptococcal testing, influenza testing was negative -Continue monitor lactic acid level -Awaiting echocardiogram -Give Lasix 20 mg IV 1 and discontinue IV fluid Leukocytosis -Likely secondary to steroid use -No source of infection has been identified at this time Hypertension -Home medications have been continued Diabetes -Worsening glucose control secondary to steroid -Diabetic diet -Accu-Cheks with sliding scale insulin DVT prevention -Subcutaneous heparin Discharge Planning Discharge planning in 24-48 hours depending on patient's response to therapy and results of echocardiogram Cory Johnson Nov 12, 2017 10:06
[2017-11-12 10:46] LABS: LACTIC ACID SEPSIS PROTOCOL 2.9 mmol/L (0.4-2.0)
[2017-11-12 17:05] LABS: HEMOGLOBIN A1C 6.8 % (4.3-6.0)
--- NOTE | 2017-11-12 17:23 | ECHRPT ---
Indication: HYPOXIA, TACHYCARDIA CONCLUSIONS Normal left ventricular size. Mild concentric left ventricular hypertrophy. The left ventricular systolic function is normal with an estimated ejection fraction in the range of 55-60%. There is trace tricuspid valve regurgitation. BP: 134 / 73 HR: 102 Rhythm: Sinus MEASUREMENTS (Male / Female) Normal Values Technical Quality:Technically difficult study 2D ECHO LV Diastolic Diameter PLAX 4.5 cm 4.2 - 5.9 / 3.9 - 5.3 cm LV Systolic Diameter PLAX 3.4 cm IVS Diastolic Thickness 1.2 cm 0.6 - 1.0 / 0.6 - 0.9 cm LVPW Diastolic Thickness 1.2 cm 0.6 - 1.0 / 0.6 - 0.9 cm LV Relative Wall Thickness 0.5 RV Internal Dim ED PLAX 2.1 cm LVOT Diameter 2.0 cm Aortic Root Diameter 2.9 cm LA Systolic Diameter LX 3.1 cm 3.0 - 4.0 / 2.7 - 3.8 cm M-MODE AV Cusp Separation MM 2.0 cm DOPPLER AV Peak Velocity 148.0 cm/s AV Peak Gradient 8.8 mmHg AV Mean Gradient 5.0 mmHg AV Velocity Time Integral 24.8 cm LVOT Peak Velocity 105.0 cm/s LVOT Peak Gradient 4.4 mmHg LVOT Velocity Time Integral 18.1 cm AV Area Cont Eq vti 2.3 cm AV Area Cont Eq pk 2.2 cm Mitral E Point Velocity 88.4 cm/s Mitral A Point Velocity 124.0 cm/s Mitral E to A Ratio 0.7 LV E' Lateral Velocity 5.5 cm/s Mitral E to LV E' Lateral Ratio 16.2 LV E' Septal Velocity 19.5 cm/s Mitral E to LV E' Septal Ratio 4.5 PV Peak Velocity 90.2 cm/s PV Peak Gradient 3.3 mmHg FINDINGS LEFT VENTRICLE Normal left ventricular size. Mild concentric left ventricular hypertrophy. The left ventricular systolic function is normal with an estimated ejection fraction in the range of 55-60%. RIGHT VENTRICLE Normal right ventricular size and systolic function. LEFT ATRIUM The left atrial size is normal. RIGHT ATRIUM The right atrial size is normal. ATRIAL SEPTUM The interatrial septum not well visualized. AORTA The aortic root and proximal ascending aorta are not well visualized. MITRAL VALVE Structurally normal mitral valve. No mitral valve stenosis or regurgitation. AORTIC VALVE No aortic valve stenosis or regurgitation. TRICUSPID VALVE There is trace tricuspid valve regurgitation. PULMONARY VALVE No pulmonary valve regurgitation or stenosis. VESSELS The inferior vena cava is normal in size. PERICARDIUM A prominent epicardial fat pad is present. Mary Robertson MD, FACC (Electronically Signed) Final Date:12 November 2017 17:22
[2017-11-12] MEDS ORDERED: AZITHROMYCIN 250 MG TAB PO SCH (18:00)
[2017-11-12] MEDS: cefTRIAXone INJ 1,000 MG in SODIUM CHLORIDE 0.9% INJ 100 ML IV SCH (20:55)
[2017-11-13 00:50] VITALS: BP 147/73; PULSE 86; RESP 20; TEMP 96.8; O2SAT 90
[2017-11-13 02:00] VITALS: O2SAT 93
[2017-11-13 04:30] VITALS: BP 134/75; PULSE 90; RESP 20; TEMP 96.4; O2SAT 90
[2017-11-13] MEDS: methylPREDNISolone SOD SUCC 40 MG/1 ML VIAL IV PUSH SCH ×2 (06:19)
[2017-11-13] MEDS: HEPARIN SODIUM - SQ 10,000 UNITS/ML VIAL SQ SCH (06:21)
[2017-11-13 06:44] LABS: AUTOMATED NEUTROPHIL # 12.9 TH/MM3 (1.8-7.7); BASOPHIL % 0.1 % (0.0-2.0); EOSINOPHIL % 0.1 % (0.0-4.0); HEMATOCRIT 36.8 % (35.0-46.0); HEMOGLOBIN 12.5 GM/DL (11.6-15.3); LYMPH % 7.3 % (9.0-44.0); MEAN CELL VOLUME 91.8 FL (80.0-100.0); MEAN CORPUSCULAR HEMOGLOBIN 31.3 PG (27.0-34.0); MEAN CORPUSCULAR HGB CONC 34.1 % (32.0-36.0); MEAN PLATELET VOLUME 9.4 FL (7.0-11.0); MONO % 2.9 % (0.0-8.0); MONOCYTE # 0.4 TH/MM3 (0-0.9); NEUT % 89.6 % (16.0-70.0); PLATELET COUNT 263 TH/MM3 (150-450); RED BLOOD COUNT 4.01 MIL/MM3 (4.00-5.30); RED CELL DISTRIBUTION WIDTH 13.1 % (11.6-17.2); WHITE BLOOD COUNT 14.3 TH/MM3 (4.0-11.0)
[2017-11-13 06:58] LABS: BICARBONATE 30.1 MEQ/L (21.0-32.0); CALCIUM 8.2 MG/DL (8.5-10.1); MAGNESIUM 2.1 MG/DL (1.5-2.5)
[2017-11-13 07:02] LABS: CREATININE 0.99 MG/DL (0.50-1.00)
[2017-11-13 08:00] VITALS: BP 190/85; PULSE 94; PULSE 98; RESP 20; TEMP 97.9; O2SAT 92
[2017-11-13] MEDS ORDERED: MEDR4PAK PO (08:14)
[2017-11-13] MEDS ORDERED: AZIT250T3 PO (08:14)
[2017-11-13] MEDS ORDERED: SYMB80AE INH (08:14)
[2017-11-13] MEDS ORDERED: METO25TA3 PO (08:14)
[2017-11-13] MEDS ORDERED: NEBULIZER1 MI1 (08:14)
[2017-11-13] MEDS ORDERED: Albuterol-Ipratropium Neb NEB (08:14)
--- NOTE | 2017-11-13 08:14 | HHI.DCPOC ---
Discharge Care Plan Diagnosis: (1) Acute respiratory failure with hypoxia (2) Asthma Goals to Promote Your Health * To prevent worsening of your condition and complications * To maintain your health at the optimal level Directions to Meet Your Goals Take your medications as prescribed Follow your dietary instruction Follow activity as directed Keep your appointments as scheduled Take your immunizations and boosters as scheduled If your symptoms worsen call your PCP, if no PCP go to Urgent Care Center or Emergency Room Smoking is Dangerous to Your Health. Avoid second hand smoke Call the 24-hour hour crisis hotline for domestic abuse at Cory Johnson Nov 13, 2017 08:14
--- NOTE | 2017-11-13 08:20 | HHI.DS ---
Discharge Summary Admission Date Nov 10, 2017 at 19:26 Discharge Date: Nov 13, 2017 Admitting Diagnosis RLL PNA, HYPOXEMIA, SIRS (1) Acute respiratory failure with hypoxia ICD Code: J96.01 - Acute respiratory failure with hypoxia Diagnosis: Principal (2) Asthma ICD Code: J45.909 - Unspecified asthma, uncomplicated Procedures ECHOCARDIOGRAM CONCLUSIONS Normal left ventricular size. Mild concentric left ventricular hypertrophy. The left ventricular systolic function is normal with an estimated ejection fraction in the range of 55-60%. There is trace tricuspid valve regurgitation. Brief History - From Admission This is a 67-year-old female with known history of hypertension, diabetes, recent right knee replacement who presented to the hospital at the request of urgent care because of possible pneumonia. Patient states that she was in her normal state of health until Friday when she developed a cough which she states was nonproductive and very irritating. It started today get progressively worse and she started having pain in her rib area from coughing so much. She went to her primary medical doctor's office yesterday, however they were on vacation as she went to [facility] and had an x-ray done and was told by the physician there that she may have pneumonia that she should go to the ER for further evaluation. Patient did come to [place] emergency department and had chest x-ray performed which did show streaky parenchymal opacities of undetermined chronicity. Patient has significant findings to include tachycardia, hypoxia requiring 4 L nasal cannula maintain O2 sats greater than 92%. Blood gas that did indicate hypoxia with O2 saturation 88% and PO2 of 57. Because of those reasons is recommended by the ER physician that the patient be admitted for further evaluation and management. Patient denies any recent sick exposures, denies any chest pain, hemoptysis, abdominal pain, nausea, vomiting, diaphoresis, lower extremity edema. CBC/BMP: 11/13/17 0625 11/13/17 0625 Significant Findings Laboratory Tests Test 11/10/17 17:20 11/10/17 17:38 11/10/17 17:45 11/10/17 20:10 Neutrophils (%) (Auto) 77.0 % (16.0-70.0) Basophils (%) (Auto) 3.4 % (0.0-2.0) Lymphocytes # (Auto) 0.9 TH/MM3 (1.0-4.8) Basophils # (Auto) 0.3 TH/MM3 (0-0.2) Creatinine 1.30 MG/DL (0.50-1.00) Random Glucose 197 MG/DL (74-106) Albumin 3.0 GM/DL (3.4-5.0) Calcium Level 8.4 MG/DL (8.5-10.1) Sodium Level 135 MEQ/L (136-145) Potassium Level 3.0 MEQ/L (3.5-5.1) Chloride Level 95 MEQ/L (98-107) Estimat Glomerular Filtration Rate 41 ML/MIN (>89) Creatine Kinase MB LESS THAN 0.5 NG/ML Troponin I LESS THAN 0.02 NG/ML Lactic Acid Level 2.6 mmol/L (0.4-2.0) 3.0 mmol/L (0.4-2.0) Blood Gas HCO3 31 mmol/L (22-26) Blood Gas Base Excess 7.4 mmol/L (-2-2) Blood Gas Oxygen Saturation 88 % (90-100) Arterial Blood pH 7.49 (7.380-7.420) Arterial Blood Partial Pressure O2 57 mmHG (61-120) Test 11/11/17 04:20 11/11/17 08:00 11/11/17 11:20 11/11/17 18:00 Neutrophils (%) (Auto) 89.9 % (16.0-70.0) Lymphocytes (%) (Auto) 8.2 % (9.0-44.0) Lymphocytes # (Auto) 0.6 TH/MM3 (1.0-4.8) Random Glucose 287 MG/DL (74-106) Calcium Level 7.7 MG/DL (8.5-10.1) Estimat Glomerular Filtration Rate 55 ML/MIN (>89) Lactic Acid Level 2.1 mmol/L (0.4-2.0) 3.9 mmol/L (0.4-2.0) Urine Glucose (UA) 500 mg/dL (NEG) Test 11/11/17 18:15 11/11/17 20:55 11/12/17 04:41 11/12/17 10:10 Hemoglobin A1c 6.8 % (4.3-6.0) Lactic Acid Level 3.1 mmol/L (0.4-2.0) 3.7 mmol/L (0.4-2.0) 2.9 mmol/L (0.4-2.0) White Blood Count 17.1 TH/MM3 (4.0-11.0) Red Blood Count 3.55 MIL/MM3 (4.00-5.30) Hematocrit 33.4 % (35.0-46.0) Neutrophils (%) (Auto) 93.2 % (16.0-70.0) Lymphocytes (%) (Auto) 4.5 % (9.0-44.0) Neutrophils # (Auto) 15.9 TH/MM3 (1.8-7.7) Lymphocytes # (Auto) 0.8 TH/MM3 (1.0-4.8) Random Glucose 248 MG/DL (74-106) Calcium Level 7.8 MG/DL (8.5-10.1) Estimat Glomerular Filtration Rate 61 ML/MIN (>89) Test 11/12/17 12:25 11/13/17 06:25 Lactic Acid Level 2.6 mmol/L (0.4-2.0) White Blood Count 14.3 TH/MM3 (4.0-11.0) Neutrophils (%) (Auto) 89.6 % (16.0-70.0) Lymphocytes (%) (Auto) 7.3 % (9.0-44.0) Neutrophils # (Auto) 12.9 TH/MM3 (1.8-7.7) Blood Urea Nitrogen 19 MG/DL (7-18) Random Glucose 272 MG/DL (74-106) Calcium Level 8.2 MG/DL (8.5-10.1) Estimat Glomerular Filtration Rate 56 ML/MIN (>89) Imaging Last Impressions CT Angiography 11/11/17 0000 Signed Impressions: CONCLUSION: 1. This study is negative for pulmonary embolism. Chest X-Ray 11/10/17 1707 Signed Impressions: CONCLUSION: Streaky parenchymal opacities of undetermined chronicity. PE at Discharge GENERAL: Well-developed, well-nourished, in no acute distress. alert and orientated HEENT: Head is normocephalic without any lesions or masses noted. Facial features are symmetric. Eyes: Extraocular muscles are intact. Conjunctivae were clear. NECK: Supple without any masses. Trachea midline no deviation. No JVD, CARDIAC: Regular rhythm, regular rate. S1/S2 are heard. No murmurs gallops or rubs. LUNGS: Clear to auscultation bilaterally. No wheeze, rhonchi or rales. No use of accessory muscles on inspiration or expiration. ABDOMEN: Soft, nontender. Nondistended. Bowel sounds heard in all 4 quadrants. No organomegaly or masses. Negative rebound, negative guarding EXTREMITIES: No edema, pulses are equal bilaterally. No cyanosis or clubbing NEUROLOGY: Mood and affect appear appropriate. Cranial nerves II through XII grossly intact. Moving all extremities, speech is clear Hospital Course 67-year-old female with known history of hypertension, diabetes, asthma who presented the hospital because of significant shortness of breath and dyspnea. Patient states that when she originally presented the hospital she cannot even walk across the parking lot because she was out of anger. Patient had workup done emergency department found to have hypoxia. Is recommended by ER physician the patient be admitted to the hospital for further evaluation and management. Patient did have complete workup and patient was admitted with O2 supplementation to maintain O2 sats greater than 92%, Solu- Medrol, Rocephin, Zithromax, duo nebs. Chest x-ray did show possible patchy atelectasis, CT angiogram was performed of the chest which did not indicate any pulmonary emboli and or infiltrates. Patient continued with treatment for respiratory failure likely secondary to asthma exacerbation. Patient tolerated treatment well and has been subsequently weaned off oxygen. Patient presently states that she is feeling much better and is very eager to go home. I discussed with the patient she needs to follow-up with a prior medical doctor, possibly have outpatient pulmonary function test performed. Also discussed with patient that we will get her a nebulizer that she should continue to use while she is at home. Continue medications until completed. We will plan discharge accordingly. Pt Condition on Discharge: Stable Discharge Disposition: Discharge Home Discharge Time: > 30 minutes Discharge Instructions DIET: Follow Instructions for: Diabetic Diet Activities you can perform: Regular-No Restrictions Follow up Referrals: PCP Follow-up - 1 Week New Medications: Budesonide-Formoterol Inh (Symbicort Inh) 80-4.5 Mcg/Act Aero 2 PUFF INH Q12HR for Asthma Management, #1 INHALER 0 Refills Methylprednisolone Dosepak (Medrol Dosepak) 4 Mg Dspk 4 MG PO DIRECTED, #1 DSPK 0 Refills Per Pharmacist direction Nebulizer (Nebulizer) 1 Mis Mis EA .XX DIRECTED for Breathing Treatment, #1 0 Refills Azithromycin (Azithromycin) 250 Mg Tab 500 MG PO DAILY@1800 for Infection for 5 Days, TAB Metoprolol Tartrate (Metoprolol Tartrate) 25 Mg Tab 25 MG PO BID for Blood Pressure Management, #60 TAB [Albuterol-Ipratropium Neb] () 1 AMPULE NEBU 1 AMPULE NEB Q6HR WHILE AWAKE NEB for Breathing Treatment for 30 Days, AMPULE Continued Medications: Aspirin DR (Aspirin 81) 81 Mg Tabdr 81 MG PO DAILY, TAB 0 Refills Glipizide (Glipizide) 10 Mg Tab 10 MG PO BIDAC for Blood Sugar Management, #60 TAB 0 Refills Take 30 minutes before a meal Metformin (Metformin) 1,000 Mg Tab 1000 MG PO BIDPC for Blood Sugar Management, #60 TAB 0 Refills Omeprazole (Omeprazole) 20 Mg Tab 20 MG PO DAILY, #30 TAB 0 Refills Oxybutynin (Ditropan) 5 Mg Tab 5 MG PO Q12HR for Urinary Symptom Managemen, #60 TAB 0 Refills Valsartan (Valsartan) 160 Mg Tab 160 MG PO DAILY, #30 TAB 0 Refills Discontinued Medications: Metoprolol Tartrate (Metoprolol Tartrate) 25 Mg Tab 25 MG PO DAILY, #30 TAB 0 Refills Cory Johnson Nov 13, 2017 08:20
[2017-11-13] MEDS: guaiFENesin E.R. 600 MG TAB PO SCH (08:39)
[2017-11-13] MEDS: FAMOTIDINE 20 MG TAB PO SCH (08:39)
[2017-11-13] MEDS: METOPROLOL TARTRATE 25 MG TAB PO SCH (08:39)
[2017-11-13] MEDS: ASPIRIN EC 81 MG TABEC PO SCH (08:39)
[2017-11-13] MEDS: PANTOPRAZOLE SOD 20 MG DELAYED RELEASE TAB PO SCH (08:40)
[2017-11-13] MEDS: INSULIN ASPART SUPPLEMENTAL SCALE SQ SCH (08:49)
[2017-11-13] MEDS: VALSARTAN 80 MG TAB PO SCH (09:42)
[2017-11-13 11:02] VITALS: BP 154/77
== END 2017-11-13 12:36 | disposition home or self-care (01) | DRG 189 ==
LOC: PHED 16:33 → PHEDA 19:26 → PHICU 20:54 → PH3A 11-12 03:49
PROVIDERS: ADMIT Family Medicine; ATTEND Family Medicine
PROC: 3E0F7GC Introduction of Other Therapeutic Substance into Respiratory Tract, Via Natural or Artificial Opening (ICD-10-PCS; principal; 2017-11-10)
DX: J96.01 Acute respiratory failure with hypoxia (principal); J45.901 Unspecified asthma with (acute) exacerbation; I07.1 Rheumatic tricuspid insufficiency; I10 Essential (primary) hypertension; E11.9 Type 2 diabetes mellitus without complications; D72.828 Other elevated white blood cell count; R00.0 Tachycardia, unspecified; M19.90 Unspecified osteoarthritis, unspecified site; Z96.651 Presence of right artificial knee joint; T38.0X5A Adverse effect of glucocorticoids and synthetic analogues, initial encounter; Y92.239 Unspecified place in hospital as the place of occurrence of the external cause; R91.8 Other nonspecific abnormal finding of lung field; Z79.84 Long term (current) use of oral hypoglycemic drugs; Z82.3 Family history of stroke
CPT/HCPCS: 36600; 71045; 71275; 80048; 80053; 81001; 82550; 82552; 82805; 82948; 83036; 83605; 83690; 83735; 83880; 84484; 85025; 85610; 85730; 87040; 87449; 87804; 93005; 93306; 94150; 94640; 94664; 96365; 96367; 96375; J0456; J0696; J1644; J1815; J1940; J2920; J2930; J7030; J7050; Q9967